=== PATIENT | female | born 2000 | race Caucasian/White ===

== ENCOUNTER 2020-12-13 04:55 | Day surgery (SDC) | payer OTHER, SELFPAY ==
[~2020-12-13] VITALS: Ht 165.1 cm; Wt 63.5 kg
[2020-12-13] MEDS ORDERED: BUPIVACAINE-MPF/EPI 0.5% 30 ML VIAL INJ ONE (06:14)
[2020-12-13] MEDS ORDERED: LIDOCAINE MPF 2% 100 MG/5 ML VIAL INJ ONE (06:50)
[2020-12-13] MEDS ORDERED: ROCURONIUM 50 MG/5 ML VIAL IV ONE (06:50)
[2020-12-13] MEDS ORDERED: PROPOFOL 200 MG/20 ML VIAL IV ONE (06:50)
[2020-12-13] MEDS ORDERED: MIDAZOLAM 2 MG/2 ML VIAL ONE (06:50)
[2020-12-13] MEDS ORDERED: METOCLOPRAMIDE 10 MG/2 ML INJ VIAL ONE (06:50)
[2020-12-13] MEDS ORDERED: SEVOFLURANE 250 ML BTL INH ONE (06:50)
[2020-12-13] MEDS ORDERED: DEXAMETHASONE 4 MG/ML VIAL ONE (06:50)
[2020-12-13] MEDS ORDERED: fentaNYL citrate 0.05 MG/ML VIAL ONE (06:50)
[2020-12-13] MEDS ORDERED: SUGAMMADEX SODIUM 200 MG/2 ML VIAL IV ONE (06:50)
[2020-12-13] MEDS ORDERED: ONDANSETRON 4 MG/2 ML VIAL IVP PRN (08:00)
[2020-12-13] MEDS ORDERED: MEPERIDINE 25 MG/ML SYR IVP PRN (08:00)
[2020-12-13] MEDS ORDERED: LACTATED RINGERS 1,000 ML IV SCH (08:00)
[2020-12-13] MEDS ORDERED: HYDROmorphone 1 MG/ML AMP IVP PRN (08:00)
[2020-12-13] MEDS ORDERED: diphenhydrAMINE 50 MG/ML VIAL IVP PRN (08:00)
[2020-12-13] MEDS ORDERED: ACET-5629 PO (09:11)
[2020-12-13] MEDS ORDERED: IBUP-2213 PO (09:14)
== END 2020-12-13 10:25 | disposition home or self-care (01) ==
LOC: MDS 04:55 → MMU 04:57 → MDS 10:25
PROVIDERS: ATTEND Obstetrics & Gynecology
DX: N83.202 Unspecified ovarian cyst, left side (principal); N80.9 Endometriosis, unspecified; G40.909 Epilepsy, unspecified, not intractable, without status epilepticus; Z79.899 Other long term (current) drug therapy; Z20.828 Contact with and (suspected) exposure to other viral communicable diseases
CPT/HCPCS: 36415; 58662; 82374; 86886; 86900; 86901; J1100; J2001; J2175; J2250; J2704; J2765; J3010; J3490; J7120; U0003